=== PATIENT | male | born 1940 | race Caucasian/White ===

== ENCOUNTER 2018-02-21 01:35 | Emergency (ER) | payer MEDICARE, BC ==
--- NOTE | 2018-02-21 02:16 | EDM.PDOC ---
ED HPI GENERAL MEDICAL PROBLEM - General Chief Complaint: Genitourinary Problem Stated Complaint: unable to urinate Time Seen by Provider: 02/21/18 01:55 Source of Information: Reports: Patient History Limitations: Reports: No Limitations - History of Present Illness INITIAL COMMENTS - FREE TEXT/NARRATIVE: This patient is a 77 year old that presents to the ER. Patient reports having urinary retention. He reports that he has not urinated since yesterday afternoon. Patient reports that he has a lot of fullness and pain in his bladder. Patient reports he did vomit x1 last night after eating supper. Patient reports enlarged prostate. Patient denies turner, dizziness, v, d, f, back pain, flank pain, cp, soa, bowel changes. Patient denies penis pain. Onset Date: 02/20/18 Onset Time: 15:00 Duration: Hour(s): (11) Location: Reports: Other (bladder) Quality: Reports: Pressure Severity: Moderate Improves with: Reports: None Worsens with: Reports: None Associated Symptoms: Denies: Confusion, Chest Pain, Cough, cough w sputum, Diaphoresis, Fever/Chills, Headaches, Loss of Appetite, Malaise, Nausea/Vomiting , Rash, Seizure, Shortness of Breath, Syncope, Weakness Bladder Pain Score (Numeric/FACES): 10 - Related Data Allergies Allergy/AdvReac Type Severity Reaction Status Date / Time No Known Allergies Allergy Verified 02/21/18 02:31 Home Meds: Home Meds Ascorbic Acid [Vitamin C] 500 mg PO DAILY 11/15/14 [History] Aspirin [Halfprin] 81 mg PO DAILY 11/15/14 [History] Carvedilol 12.5 mg PO BID 11/15/14 [History] Docusate Sodium [Stool Softener] 100 mg PO BID PRN 11/15/14 [History] Finasteride [Proscar] 5 mg PO DAILY 11/15/14 [History] Magnesium 200 mg PO DAILY 11/15/14 [History] Meloxicam 7.5 mg PO DAILY 11/15/14 [History] [place]-3 Fatty Acids [Fish Oil] 500 mg PO BID 11/15/14 [History] Psyllium Husk [Metamucil] 0.52 gm PO DAILY PRN 11/15/14 [History] Ramipril [Altace] 10 mg PO DAILY 11/15/14 [History] Simvastatin [Zocor] 40 mg PO BEDTIME 11/15/14 [History] Tamsulosin HCl 0.4 mg PO BEDTIME 11/15/14 [History] Ubidecarenone [Co Q-10] 200 mg PO DAILY 02/21/18 [History] ED ROS GENERAL - Review of Systems Review Of Systems: See Below Constitutional: Reports: No Symptoms HEENT: Reports: No Symptoms Respiratory: Reports: No Symptoms Cardiovascular: Reports: No Symptoms Endocrine: Reports: No Symptoms GI/Abdominal: Reports: Vomiting (x1). Denies: Nausea (not currently) : Reports: Urgency, Urinary Retention, Other (suprapubic "bladder" pain and fulllness). Denies: Flank Pain Musculoskeletal: Reports: No Symptoms Skin: Reports: No Symptoms Neurological: Reports: No Symptoms Psychiatric: Reports: No Symptoms Hematologic/Lymphatic: Reports: No Symptoms Immunologic: Reports: No Symptoms ED EXAM, RENAL/ - Physical Exam Exam: See Below Exam Limited By: No Limitations General Appearance: Alert, WD/WN, No Apparent Distress, Other (appears uncomfortable) Eye Exam: Bilateral Eye: PERRL Nose: Normal Inspection Head: Atraumatic, Normocephalic Neck: Normal Inspection Respiratory/Chest: No Respiratory Distress, Lungs Clear, Normal Breath Sounds, No Accessory Muscle Use Cardiovascular: Normal Peripheral Pulses, Regular Rate, Rhythm, No Edema, No Gallop, No JVD, No Murmur, No Rub GI/Abdominal: Normal Bowel Sounds, Soft, No Organomegaly, No Abnormal Bruit, No Mass, Pelvis Stable, Distended (Male) Exam: Suprapubic Fullness Rectal (Males) Exam: Deferred Back Exam: Normal Inspection, Full Range of Motion. No: CVA Tenderness (L), CVA Tenderness (R) Extremities: Normal Inspection, Normal Range of Motion, Non-Tender, No Pedal Edema, Normal Capillary Refill Neurological: Alert, Oriented, Normal Gait, No Motor/Sensory Deficits Psychiatric: Normal Affect, Normal Mood Skin Exam: Warm, Dry, Intact, Normal Color, No Rash Lymphatic: No Adenopathy Course - Vital Signs Last Recorded V/S: Last Vital Signs Temp 97.5 F 02/21/18 01:35 Pulse 64 02/21/18 01:35 Resp 20 02/21/18 01:35 BP 170/76 H 02/21/18 01:35 Pulse Ox 95 02/21/18 01:35 - Orders/Labs/Meds Orders: Active Orders 24 hr Category Date Time Status Insert Cardona Catheter [Insert Urinary Catheter] [OM.PC] Care 02/21/18 01:45 Ordered Q24H Urinary Catheter Assessment [RC] ASDIRECTED Care 02/21/18 02:57 Active Abdomen Pelvis wo Cont [CT] Stat Exams 02/21/18 02:22 Taken CULTURE URINE [RM] Stat Lab 02/21/18 02:11 Ordered Ketorolac [Toradol] Med 02/21/18 03:58 Once 60 mg IM ONETIME ONE Ondansetron [Zofran ODT] Med 02/21/18 03:58 Once 4 mg PO ONETIME ONE Labs: Laboratory Tests 02/21/18 02/21/18 02/21/18 Range/Units 01:59 02:06 02:06 WBC 10.6 H (5.0-10.0) 10^3/uL RBC 4.69 (4.50-6.00) 10^6/uL Hgb 14.1 (14.0-18.0) g/dL Hct 41.6 (40.0-54.0) % MCV 88.7 (82.0-94.0) fL MCH 30.1 (27.0-32.0) pg MCHC 33.9 (33.0-38.0) g/dL RDW Coeff of Ghada 13.3 (11.0-15.0) % Plt Count 199 (150-400) 10^3/uL Neut % (Auto) 79.4 (35-85) % Lymph % (Auto) 9.5 L (10-55) % [place] % (Auto) 10.1 (0-16) % Eos % (Auto) 0.8 (0-5) % Baso % (Auto) 0.2 (0-3) % Neut # (Auto) 8.42 H (1.80-7.00) 10^3/uL Lymph # (Auto) 1.01 (1.00-4.80) 10^3/uL [place] # (Auto) 1.07 H (0.00-0.80) 10^3/uL Eos # (Auto) 0.08 (0.00-0.45) 10^3/uL Baso # (Auto) 0.02 10^3/uL Sodium 138 (136-145) mEq/L Potassium 4.6 (3.5-5.0) mEq/L Chloride 101 (98-106) mEq/L Carbon Dioxide 28 (21-32) mmol/L BUN 20 H (7-18) mg/dL Creatinine 1.2 (0.7-1.3) mg/dL Est Cr Clr Drug Dosing TNP Estimated GFR (MDRD) 59 L (>=60) mL/min Glucose 162 H D (75-99) mg/dL Calcium 8.9 (8.4-10.1) mg/dL Total Bilirubin 0.4 (0.0-1.0) mg/dL AST 24 (15-37) U/L ALT 38 (12-78) U/L Alkaline Phosphatase 91 (46-116) U/L Total Protein 6.5 (6.4-8.2) g/dL Albumin 3.5 (3.4-5.0) g/dL Urine Color Yellow (YELLOW) Urine Appearance Clear (CLEAR) Urine pH 5.5 (4.5-8.0) Ur Specific [place] 1.025 H (1.003-1.020) Urine Protein Negative (NEGATIVE) mg/dL Urine Glucose (UA) Negative (NEGATIVE) mg/dL Urine Ketones Negative (NEGATIVE) mg/dL Urine Occult Blood Large H (NEGATIVE) Urine Nitrite Negative (NEGATIVE) Urine Bilirubin Negative (NEGATIVE) Urine Urobilinogen 0.2 (0.2-1.0) EU/dL Ur Leukocyte Esterase Negative (NEGATIVE) Urine RBC 50-75 H (0-5) /HPF Urine WBC 5-10 H (0-5) /HPF Ur Squamous Epith Cells Occasional H (NOT SEEN) /HPF Ur Renal Epithelial Cell Occasional H (NOT SEEN) /HPF Urine Mucus Few H (NOT SEEN) /HPF Meds: Medications Discontinued Medications Generic Name Dose Route Start Last Admin Trade Name Freq PRN Reason Stop Dose Admin Hydrocodone Bitart/Acetaminophen 3 packet 02/21/18 03:56 Take Home: Acetaminophen/Hydrocod, 2 Tab Pack PO 02/21/18 03:57 ONETIME ONE Ondansetron HCl 2 packet 02/21/18 03:56 Take Home: Ondansetron Odt 4 Mg, 2 Tab Pack PO 02/21/18 03:57 ONETIME ONE - Radiology Interpretation Free Text/Narrative:: Abd/Pelvis ct without contrast: Discussed with radiologist: 4.6mm ureter stone at UVJ with obstruction left. mild hydronephrosis. cholelithiasis, without acute cholecystitis. - Re-Assessments/Exams Free Text/Narrative Re-Assessment/Exam: 02/21/18 03:56 Patient does report that he is feeling a lot of relief, but still has some pain. I called and spoke to Urologist at [facility]. He reports that we could remove the cardnoa, continue flomax, strain urine, increase fluid intake, and followup with urology in 1-2 weeks. Patient may return for increase in pain or urinary retention return. I will discharge the patient. 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 - Discharge Information *PRESCRIPTION DRUG MONITORING PROGRAM REVIEWED*: No *COPY OF PRESCRIPTION DRUG MONITORING REPORT IN PATIENT GABRIEL: No Instructions: Kidney Stones, [id number] Referrals: Rocky Arreaga MD [Primary Care Provider] - Forms: ED Department Discharge Additional Instructions: Followup with your urologist in 1-2 weeks Followup with your primary care provider Return to the ER for worsening of condition or any emergent concerns Increase fluid intake Strain urine Norcol 5/325mg 1-2 pills every 4-6 hours as needed for pain no refill #6 take home Zofran 4mg 1 pill every hours as needed for nausea #4 no refill take home - My Orders Last 24 Hours: My Active Orders 02/21/18 01:45 Insert Cardona Catheter [Insert Urinary Catheter] [OM.PC] Q24H 02/21/18 02:11 CULTURE URINE [RM] Stat 02/21/18 02:22 Abdomen Pelvis wo Cont [CT] Stat 02/21/18 02:57 Urinary Catheter Assessment [RC] ASDIRECTED 02/21/18 03:58 Ketorolac [Toradol] 60 mg IM ONETIME ONE Ondansetron [Zofran ODT] 4 mg PO ONETIME ONE - Assessment/Plan Last 24 Hours: My Active Orders 02/21/18 01:45 Insert Cardona Catheter [Insert Urinary Catheter] [OM.PC] Q24H 02/21/18 02:11 CULTURE URINE [RM] Stat 02/21/18 02:22 Abdomen Pelvis wo Cont [CT] Stat 02/21/18 02:57 Urinary Catheter Assessment [RC] ASDIRECTED 02/21/18 03:58 Ketorolac [Toradol] 60 mg IM ONETIME ONE Ondansetron [Zofran ODT] 4 mg PO ONETIME ONE Plan: PLEASE SEE RN NOTE FOR PFSH.
[2018-02-21 02:28] LABS: CHLORIDE,CL 101 mEq/L (98-106); SODIUM,NA 138 mEq/L (136-145)
[2018-02-21 02:39] VITALS: BP 170/76
[2018-02-21] MEDS ORDERED: Take Home: Ondansetron 4 MG Tab.DIS, 2 Tab Pack PO ONE (03:56)
[2018-02-21] MEDS ORDERED: Take Home: Acetaminophen/HYDROcodone 325-5 MG, 2 Tab Pack PO ONE (03:56)
[2018-02-21] MEDS ORDERED: Ondansetron 4 MG Tab.DIS PO ONE (03:58)
[2018-02-21] MEDS ORDERED: Ketorolac 60 MG/2 ML SDV IM ONE (03:58)
== END 2018-02-21 04:20 | disposition home or self-care (01) ==
LOC: CC.ED 01:35
DX: N13.0 Hydronephrosis with ureteropelvic junction obstruction (principal); Z79.899 Other long term (current) drug therapy; Z79.82 Long term (current) use of aspirin
CPT/HCPCS: 36415; 51702; 74176; 80053; 81001; 85025; 87086; 96372; 99283; 99284; A9270-GY; J1885

== ENCOUNTER → 2018-12-09 | Day surgery (SDC) | payer MEDICARE, BC ==
[~2018-12-09] MED LIST: Lactated Ringers 1,000 ML IV SCH; Propofol 200 MG/20 ML SDV IV ONE
[2018-12-09 12:53] VITALS: BP 169/60; PULSE 56
--- NOTE | 2018-12-12 13:07 | OR ---
DATE OF OPERATION: 12/09/2018 PREOPERATIVE DIAGNOSIS: 1. GASTROESOPHAGEAL REFLUX DISEASE. 2. HISTORY OF POLYPS WITH HEMATOCHEZIA. POSTOPERATIVE DIAGNOSIS: 1. GASTROESOPHAGEAL REFLUX DISEASE. 2. HISTORY OF POLYPS WITH HEMATOCHEZIA. SURGEON: Rocky Arreaga MD PROCEDURE: 1. EGD WITH BIOPSIES X3, NIKKI. 2. FULL-LENGTH COLONOSCOPY WITH POLYP REMOVAL X6, SEE REPORT. ANESTHESIA: MAC via CONTACT LENS CURVE GRINDER. COMPLICATIONS: None. SPECIMEN: 1. Antral biopsy x2. 2. NIKKI. 3. Distal esophageal biopsy x1. 4. Villous adenoma, cecal pouch. 5. Villous adenoma, proximal ascending colon. 6. Four small sessile polyps, see report. FINDINGS: 1. Full-length EGD. 2. Mild antral gastritis. 3. Small hiatal hernia with spontaneous GERD and associated short-segment Garcia's. 4. Full-length colonoscopy. 5. [id number] sigmoid diverticulosis. 6. Colon polyps x6, see report. RECOMMENDATIONS: Followup colonoscopy in 3 years pending path reports. We will continue with proton pump therapy for treatment of the patient's GERD. Do not feel he is in need of consideration for lap Jayleen. INDICATIONS: Mr. Kelly was in for routine physical. He has been having some occasional hematochezia, has a family history of colon cancer and history of polyps himself. We elected to proceed with diagnostic colonoscopy because he has some chronic reflux as well. We did upper and lower endoscopy today. DESCRIPTION OF PROCEDURE: The patient was prepped and draped, placed in the left lateral decubitus position. A lubricated Olympus gastroscope was inserted over a bit, advanced to cricopharyngeus area, and easily intubated in the esophagus. The esophageal lining was benign in its entire course until its most distal portion. The Z-line was crisp around 38 cm. There is a small hernia present with spontaneous reflux seen. There appears to be 1 short segment of Garcia's. No significant inflammation or erosion. We did do a biopsy of that. The scope was advanced into the stomach, through the pylorus, and into the second portion of the duodenum. This and the duodenal bulb were benign. The scope was brought back into the stomach and retroflexed. The upper fundus and cardia were unremarkable. The patient had some very minimal linear gastritis of the antrum. Two biopsies were taken along with a CLOtest. Air was then suctioned from the stomach and the scope removed without complication. A lubricated Olympus colonoscope was then inserted and with relative ease advanced to the cecum. We were able to directly visualize the ileocecal valve and appendiceal orifice. The bowel prep was excellent. Upon withdrawal, the cecal pouch had about a cm sized villous adenoma, I was able to remove with a snare and suctioned into polyp trap #1. He had kind of a linear villous adenoma just outside the pouch in the proximal ascending colon, I had to remove that with 4 separate cold forceps biopsies. The rest of the ascending and transverse colon were unremarkable. The patient had a small villous adenoma at the splenic flexure, removed with a forceps biopsy x2. At the descending colon proximally, there was another villous adenoma along the haustral fold, removed that with a snare and suctioned into polyp trap #3. The rest of the sigmoid and rectosigmoid junction appeared benign other than diverticular disease. In the rectal vault, the patient had 2 small hyperplastic-appearing sessile polyps removed with forceps in their entirety without complication. Retroflexion of the scope in the rectum showed no anal lesions. Air was suctioned, scope removed without complication. IBETH/KACIE /[id number]
== END ==
LOC: CC.SDS 07:50
PROVIDERS: ATTEND Family Medicine
DX: K57.31 Diverticulosis of large intestine without perforation or abscess with bleeding (principal); D12.3 Benign neoplasm of transverse colon; D12.0 Benign neoplasm of cecum; K62.1 Rectal polyp; K57.30 Diverticulosis of large intestine without perforation or abscess without bleeding; K21.9 Gastro-esophageal reflux disease without esophagitis; K22.70 Barrett's esophagus without dysplasia; K44.9 Diaphragmatic hernia without obstruction or gangrene; K31.89 Other diseases of stomach and duodenum; K22.8 Other specified diseases of esophagus; I25.10 Atherosclerotic heart disease of native coronary artery without angina pectoris; I10 Essential (primary) hypertension; E78.00 Pure hypercholesterolemia, unspecified; M47.816 Spondylosis without myelopathy or radiculopathy, lumbar region; N40.0 Benign prostatic hyperplasia without lower urinary tract symptoms; Z95.1 Presence of aortocoronary bypass graft; Z87.891 Personal history of nicotine dependence; Z86.010 Personal history of colon polyps; Z79.82 Long term (current) use of aspirin; Z79.1 Long term (current) use of non-steroidal anti-inflammatories (NSAID); Z79.899 Other long term (current) drug therapy
CPT/HCPCS: 43239; 45380; 45385; 87081; J2704; J7120; 00813; 88305

== ENCOUNTER 2020-02-11 13:38 | Emergency (ER) | payer MEDICARE, BC ==
[2020-02-11] MEDS ORDERED: Sodium Chloride 0.9% 10 ML Syringe FLUSH PRN (14:04)
[2020-02-11 14:12] LABS: O2 DELIVERY DEVICE NASAL CANNULA; O2 SATURATION ARTERIAL 94 % (95-98); PCO2 ARTERIAL 33 mm/Hg0 (35-45); PO2 ARTERIAL 68 mm/Hg (80-100)
--- NOTE | 2020-02-11 14:12 | EDM.PDOC ---
ED HPI GENERAL MEDICAL PROBLEM - General Chief Complaint: General Stated Complaint: SOB, COVID+ Time Seen by Provider: 02/11/20 13:38 Source of Information: Reports: Patient, Family History Limitations: Reports: No Limitations - History of Present Illness INITIAL COMMENTS - FREE TEXT/NARRATIVE: Patient to the emergency department with his with complaint of increasing shortness of breath and fatigue and continued fever. The patient advised that on January 29 he did test positive for COVID. The patient's advised he was sick for a couple of days prior to that. The patient denies any ear, nose, throat symptoms. Denies any unusual neck, back pain or stiffness denies any chest pain, pressure heaviness. Denies any palpitations irregular heartbeat. The patient denies any abdominal pain, nausea, vomiting, diarrhea. The patient's advised that he is not been eating and drinking very well and has lost weight. Onset: Gradual Duration: Day(s): (Symptoms over the past several days) Location: Reports: Generalized Quality: Reports: Ache Severity: Severe Worsens with: Reports: Other (Symptoms worsen with activity) Associated Symptoms: Reports: Cough, Fever/Chills, Shortness of Breath, Weakness. Denies: Confusion, Chest Pain, Headaches, Nausea/Vomiting Treatments POSTAL SORTING OFFICER: Reports: Other (see below) (none) - Related Data Allergies Allergy/AdvReac Type Severity Reaction Status Date / Time No Known Allergies Allergy Verified 02/11/20 13:44 Home Meds: Home Meds Ascorbic Acid [Vitamin C] 500 mg PO DAILY 11/15/14 [History] Aspirin [Halfprin] 81 mg PO DAILY 11/15/14 [History] Docusate Sodium [Stool Softener] 100 mg PO BID PRN 11/15/14 [History] Finasteride [Proscar] 5 mg PO DAILY 11/15/14 [History] Magnesium 200 mg PO DAILY 11/15/14 [History] Meloxicam 7.5 mg PO DAILY 11/15/14 [History] [place]-3 Fatty Acids [Fish Oil] 500 mg PO BID 11/15/14 [History] Psyllium Husk [Metamucil] 0.52 gm PO DAILY PRN 11/15/14 [History] Ramipril [Altace] 10 mg PO DAILY 11/15/14 [History] Tamsulosin HCl 0.4 mg PO BEDTIME 11/15/14 [History] carvediloL [Carvedilol] 12.5 mg PO BID 11/15/14 [History] Ubidecarenone [Co Q-10] 200 mg PO DAILY 02/21/18 [History] Albuterol Sulfate [Proair Hfa] 1 - 2 puff INH Q4H PRN 12/08/18 [History] Esomeprazole Magnesium 20 mg PO DAILY 12/08/18 [History] Ipratropium/Albuterol Sulfate [Iprat-Albut 0.5-3(2.5) mg/3 ml] 1 inh INH QID 12/08/18 [History] Rosuvastatin Calcium 20 mg PO DAILY 12/08/18 [History] Vitamin B Complex 1 tab PO DAILY 12/08/18 [History] Past Medical History HEENT History: Reports: Sinusitis Cardiovascular History: Reports: High Cholesterol, Hypertension Respiratory History: Reports: Bronchitis, Recurrent Gastrointestinal History: Reports: Chronic Constipation Genitourinary History: Reports: BPH, Retention, Urinary Musculoskeletal History: Reports: Osteoarthritis Oncologic (Cancer) History: Reports: Squamous Cell Carcinoma - Infectious Disease History Infectious Disease History: Reports: None - Past Surgical History Cardiovascular Surgical History: Reports: Coronary Artery Bypass Respiratory Surgical History: Reports: None GI Surgical History: Reports: Appendectomy, Cholecystectomy, Colonoscopy, Hernia, Inguinal, Polypectomy Male Surgical History: Reports: None Musculoskeletal Surgical History: Reports: Knee Replacement Social & Family History - Family History Family Medical History: Noncontributory - Tobacco Use Smoking Status *Q: Former Smoker Used Tobacco, but Quit: Yes Month/Year Tobacco Last Used: 40 - Caffeine Use Caffeine Use: Reports: Soda - Recreational Drug Use Recreational Drug Use: No ED ROS GENERAL - Review of Systems Review Of Systems: See Below Constitutional: Reports: Fever, Chills, Weakness HEENT: Reports: No Symptoms. Denies: Ear Pain, Nose Pain, Throat Pain Respiratory: Reports: Shortness of Breath, Wheezing, Cough, Other (Patient advises that he has been using his hand-held nebulizers [id number] as ordered at home.) Cardiovascular: Denies: Chest Pain Endocrine: Reports: No Symptoms GI/Abdominal: Denies: Abdominal Pain, Diarrhea, Nausea, Vomiting : Reports: No Symptoms Musculoskeletal: Reports: Muscle Pain (Generalized myalgia) Skin: Reports: No Symptoms. Denies: Bruising, Rash, Erythema Neurological: Reports: No Symptoms. Denies: Confusion, Dizziness, Headache, Change in Speech Psychiatric: Reports: No Symptoms ED EXAM, GENERAL - Physical Exam Exam: See Below Exam Limited By: No Limitations General Appearance: Alert, WD/WN, Mild Distress, Obese Ears: Normal External Exam, Normal Canal. No: Hearing Grossly Normal (Has hearing aids in) Nose: Normal Inspection, Normal Mucosa Throat/Mouth: Normal Inspection, Normal Lips, Normal Oropharynx, Normal Voice, No Airway Compromise Head: Atraumatic, Normocephalic Neck: Normal Inspection, Supple, Non-Tender, Full Range of Motion Respiratory/Chest: Chest Non-Tender, Wheezing (Patient does have scattered wheezing with decreased lung sounds in the bases) Cardiovascular: Normal Peripheral Pulses, Regular Rate, Rhythm, Systolic Murmur Peripheral Pulses: 2+: Radial (L), Radial (R) GI/Abdominal: Soft, Non-Tender, No Distention Back Exam: Normal Inspection, Full Range of Motion Extremities: Normal Inspection, Normal Range of Motion, Non-Tender, Normal Capillary Refill. No: Pedal Edema, Radhames's Sign Neurological: Alert, Oriented, Normal Cognition, No Motor/Sensory Deficits Psychiatric: Normal Affect, Normal Mood Skin Exam: Warm, Dry, Intact, Normal Color EKG INTERPRETATION EKG Date: 02/11/20 Time: 13:59 Rhythm: NSR P-Wave: Present (First-degree AV block) QRS: Normal ST-T: Other (Unspecific ST changes) QT: Normal EKG Interpretation Comments: Twelve-lead EKG shows underlying sinus rhythm with a ventricular rate of 74 there is a first-degree AV block and nonspecific ST changes however there is no acute injury or ischemia noted. Course - Vital Signs Text/Narrative:: 1405 the patient has been evaluated in the emergency department the patient's oxygen saturation on room air was 85% with a good Bleph. The patient does have scattered expiratory wheezing with decreased lung sounds in the bases. Labs have been obtained and are being processed in the lab at this point, twelve-lead EKG shows an underlying sinus rhythm with a ventricular rate of 74 there is a first-degree AV block and some nonspecific ST changes. however, there is no acute injury or ischemia noted. X-ray is currently on her way into get a chest x-ray. The patient was placed on O2 at 6 L nasal cannula and the oxygen saturation is running around 91 to 92%. 1439 the chest x-ray does show some increased markings in the right lower lobe suggestive of an infiltrate, there is some scattered haziness throughout the left lung however this is an overall poor quality film makes interpretation difficult. The patient's oxygen saturation is hanging around 91 to 92% on 6 L nasal cannula. The patient was given Solu-Medrol 125 mg IV, Rocephin 2 g IV as well as Zithromax 500 mg IV. I did discuss the need to transfer the patient with the patient and the family and they requested to go to [facility] in [place], I did call and speak to the transfer center at 1427 and they advised that there is no code beds available. I then called [facility] in [place] and spoke to the transfer center coordinator there Carli and she also advised they do not have any code beds available. I spoke back with the patient and he advised to go to [facility] in [place]. I did call and speak to the transfer center and ultimately Dr. Mayen the emergency department tending physician who has accepted the patient in transfer. The transfer was accepted at 1439. See the nursing notes for details of the transfer. Patient and the patient's was advised. The patient and the patient's was advised of the transfer. They were advised of the risk and benefits to include the risk of worsening condition, motor vehicle accident and as well as the benefits evaluation and treatment by an manager alliance as well as supervising fire marshal and infectious disease physician who is not available at [facility]. They agreed except the risk and benefits and the patient is being transferred. Last Recorded V/S: Last Vital Signs Temp 36.8 C 02/11/20 13:38 Pulse 70 02/11/20 14:27 Resp 24 H 02/11/20 14:27 BP 153/65 H 02/11/20 14:06 Pulse Ox 91 L 02/11/20 14:27 - Orders/Labs/Meds Orders: Active Orders 24 hr Category Date Time Status EKG Documentation Completion [RC] STAT Care 02/11/20 13:59 Active Overnight Pulse Oximetry [RC] Click to Edit Care 02/11/20 14:03 Active Chest 1V Frontal [CR] Stat Exams 02/11/20 14:02 Taken CULTURE BLOOD [BC] Stat Lab 02/11/20 14:00 Received CULTURE BLOOD [BC] Stat Lab 02/11/20 14:08 Received Azithromycin [Zithromax] 500 mg Med 02/11/20 14:24 Active Sodium Chloride 0.9% [Normal Saline] 250 ml IV ONETIME Sodium Chloride 0.9% [Saline Flush] Med 02/11/20 14:04 Active 10 ml FLUSH ASDIRECTED PRN Blood Culture x2 Reflex Set [OM.PC] Stat Oth 02/11/20 14:02 Ordered Isolation [COMM] Routine Oth 02/11/20 13:38 Active Pulse Oximetry Continuous Monitoring [OM.PC] Routine Oth 02/11/20 14:03 Ordered Saline Lock Insert [OM.PC] Routine Oth 02/11/20 14:04 Ordered Medication Orders Azithromycin 500 mg/ Sodium (Chloride) 250 mls @ 250 mls/hr IV ONETIME ONE Stop: 02/11/20 15:23 Last Admin: 02/11/20 14:37 Dose: 250 mls/hr Documented by: LIBERTAD Sodium Chloride (Saline Flush) 10 ml FLUSH ASDIRECTED PRN PRN Reason: Keep Vein Open Labs: Laboratory Tests 02/11/20 02/11/20 02/11/20 Range/Units 14:05 14:08 14:08 WBC 8.6 (5.0-10.0) 10^3/uL RBC 4.23 L (4.50-6.00) 10^6/uL Hgb 12.2 L (14.0-18.0) g/dL Hct 36.7 L (40.0-54.0) % MCV 86.8 (82.0-94.0) fL MCH 28.8 (27.0-32.0) pg MCHC 33.2 (33.0-38.0) g/dL RDW Coeff of Ghada 14.2 (11.0-15.0) % Plt Count 445 H (150-400) 10^3/uL Neut % (Auto) 73.5 (35-85) % Lymph % (Auto) 8.6 L (10-55) % [place] % (Auto) 16.9 H (0-16) % Eos % (Auto) 0.8 (0-5) % Baso % (Auto) 0.2 (0-3) % Neut # (Auto) 6.32 (1.80-7.00) 10^3/uL Lymph # (Auto) 0.74 L (1.00-4.80) 10^3/uL [place] # (Auto) 1.45 H (0.00-0.80) 10^3/uL Eos # (Auto) 0.07 (0.00-0.45) 10^3/uL Baso # (Auto) 0.02 10^3/uL PT 10.3 (9.7-12.3) SEC INR 1.02 (0.92-1.18) ABG pH 7.45 (7.35-7.45) ABG pCO2 33 L (35-45) mm/Hg0 ABG pO2 68 L (80-100) mm/Hg ABG HCO3 23.0 (22.0-26.0) mm/L ABG O2 Saturation 94 L (95-98) % ABG Base Excess -1.0 (-2.0-3.0) O2 Delivery Device Nasal cannula Oxygen Flow Rate 6.0 Sodium (136-145) mEq/L Potassium (3.5-5.0) mEq/L Chloride (98-106) mEq/L Carbon Dioxide (21-32) mmol/L BUN (7-18) mg/dL Creatinine (0.7-1.3) mg/dL Est Cr Clr Drug Dosing mL/min Estimated GFR (MDRD) (>=60) mL/min Glucose (75-99) mg/dL Lactic Acid (0.4-2.0) mmol/L Calcium (8.4-10.1) mg/dL Magnesium (1.8-2.4) mg/dL Total Bilirubin (0.0-1.0) mg/dL AST (15-37) U/L ALT (12-78) U/L Alkaline Phosphatase (46-116) U/L Troponin I (0.00-0.06) ng/mL C-Reactive Protein (0.2-0.8) mg/dL NT-Pro-B Natriuret Pep (0-1000) pg/mL Total Protein (6.4-8.2) g/dL Albumin (3.4-5.0) g/dL 02/11/20 02/11/20 Range/Units 14:08 14:08 WBC (5.0-10.0) 10^3/uL RBC (4.50-6.00) 10^6/uL Hgb (14.0-18.0) g/dL Hct (40.0-54.0) % MCV (82.0-94.0) fL MCH (27.0-32.0) pg MCHC (33.0-38.0) g/dL RDW Coeff of Ghada (11.0-15.0) % Plt Count (150-400) 10^3/uL Neut % (Auto) (35-85) % Lymph % (Auto) (10-55) % [place] % (Auto) (0-16) % Eos % (Auto) (0-5) % Baso % (Auto) (0-3) % Neut # (Auto) (1.80-7.00) 10^3/uL Lymph # (Auto) (1.00-4.80) 10^3/uL [place] # (Auto) (0.00-0.80) 10^3/uL Eos # (Auto) (0.00-0.45) 10^3/uL Baso # (Auto) 10^3/uL PT (9.7-12.3) SEC INR (0.92-1.18) ABG pH (7.35-7.45) ABG pCO2 (35-45) mm/Hg0 ABG pO2 (80-100) mm/Hg ABG HCO3 (22.0-26.0) mm/L ABG O2 Saturation (95-98) % ABG Base Excess (-2.0-3.0) O2 Delivery Device Oxygen Flow Rate Sodium 136 (136-145) mEq/L Potassium 4.3 (3.5-5.0) mEq/L Chloride 98 (98-106) mEq/L Carbon Dioxide 26 (21-32) mmol/L BUN 13 (7-18) mg/dL Creatinine 0.9 (0.7-1.3) mg/dL Est Cr Clr Drug Dosing 62.03 mL/min Estimated GFR (MDRD) > 60 (>=60) mL/min Glucose 138 H (75-99) mg/dL Lactic Acid 1.4 (0.4-2.0) mmol/L Calcium 8.7 (8.4-10.1) mg/dL Magnesium 2.2 (1.8-2.4) mg/dL Total Bilirubin 0.5 (0.0-1.0) mg/dL AST 72 H (15-37) U/L ALT 85 H (12-78) U/L Alkaline Phosphatase 73 (46-116) U/L Troponin I < 0.017 (0.00-0.06) ng/mL C-Reactive Protein 33.7 H (0.2-0.8) mg/dL NT-Pro-B Natriuret Pep 692 (0-1000) pg/mL Total Protein 7.1 (6.4-8.2) g/dL Albumin 2.1 L (3.4-5.0) g/dL Meds: Medications Generic Name Dose Route Start Last Admin Trade Name Freq PRN Reason Stop Dose Admin Azithromycin 500 mg/ Sodium 250 mls @ 250 mls/hr 02/11/20 14:24 02/11/20 14:37 Chloride IV 02/11/20 15:23 250 mls/hr ONETIME ONE Administration Sodium Chloride 10 ml 02/11/20 14:04 Saline Flush FLUSH ASDIRECTED PRN Keep Vein Open Discontinued Medications Generic Name Dose Route Start Last Admin Trade Name Freq PRN Reason Stop Dose Admin Ceftriaxone Sodium 2 gm 02/11/20 14:23 02/11/20 14:30 Rocephin IVPUSH 02/11/20 14:24 2 gm ONETIME ONE Administration Methylprednisolone Sodium Succinate 125 mg 02/11/20 14:20 02/11/20 14:24 Solu-Medrol IVPUSH 02/11/20 14:21 125 mg ONETIME ONE Administration Departure - Departure Time of Disposition: 14:44 Disposition: DC/Tfer to [facility] 02 Condition: Good Clinical Impression: Right lower lobe pneumonia, Lab test positive for detection of COVID-19 virus, Shortness of breath, Hypoxia - Discharge Information *PRESCRIPTION DRUG MONITORING PROGRAM REVIEWED*: Not Applicable *COPY OF PRESCRIPTION DRUG MONITORING REPORT IN PATIENT GABRIEL: Not Applicable Referrals: Rocky Arreaga MD [Primary Care Provider] - Forms: ED Department Discharge Critical Care Note - Critical Care Note Total Time (mins): 30 (See the course notes for details) Sepsis Event Note (ED) - Evaluation Sepsis Screening Result: Possible Sepsis Risk - Focused Exam Vital Signs: Vital Signs Temp Pulse Resp BP Pulse Ox 02/11/20 14:27 70 24 H 91 L 02/11/20 14:06 73 18 153/65 H 92 L 02/11/20 13:48 92 L 02/11/20 13:38 36.8 C 77 30 H 145/66 H 85 L - Problem List & Annotations (1) Hypoxia SNOMED Code(s): 932266002 Code(s): R09.02 - HYPOXEMIA Status: Acute Priority: High Current Visit: Yes (2) Lab test positive for detection of COVID-19 virus SNOMED Code(s): 005870076, 849301765 Code(s): U07.1 - COVID-19 Status: Acute Priority: High Current Visit: Yes (3) Right lower lobe pneumonia SNOMED Code(s): 404327100 Code(s): J18.9 - PNEUMONIA, UNSPECIFIED ORGANISM Status: Acute Priority: High Current Visit: Yes Qualifiers: Pneumonia type: due to unspecified organism Qualified Code(s): J18.9 - Pneumonia, unspecified organism (4) Shortness of breath SNOMED Code(s): 221308011 Code(s): R06.02 - SHORTNESS OF BREATH Status: Acute Priority: High Current Visit: Yes - Problem List Review Problem List Initiated/Reviewed/Updated: Yes - My Orders Last 24 Hours: My Active Orders 02/11/20 13:38 Isolation [COMM] Routine 02/11/20 13:59 EKG Documentation Completion [RC] STAT 02/11/20 14:00 CULTURE BLOOD [BC] Stat 02/11/20 14:02 Chest 1V Frontal [CR] Stat Blood Culture x2 Reflex Set [OM.PC] Stat 02/11/20 14:03 Overnight Pulse Oximetry [RC] Click to Edit Pulse Oximetry Continuous Monitoring [OM.PC] Routine 02/11/20 14:04 Sodium Chloride 0.9% [Saline Flush] 10 ml FLUSH ASDIRECTED PRN Saline Lock Insert [OM.PC] Routine 02/11/20 14:08 CULTURE BLOOD [BC] Stat 02/11/20 14:24 Azithromycin [Zithromax] 500 mg Sodium Chloride 0.9% [Normal Saline] 250 ml IV ONETIME - Assessment/Plan Last 24 Hours: My Active Orders 02/11/20 13:38 Isolation [COMM] Routine 02/11/20 13:59 EKG Documentation Completion [RC] STAT 02/11/20 14:00 CULTURE BLOOD [BC] Stat 02/11/20 14:02 Chest 1V Frontal [CR] Stat Blood Culture x2 Reflex Set [OM.PC] Stat 02/11/20 14:03 Overnight Pulse Oximetry [RC] Click to Edit Pulse Oximetry Continuous Monitoring [OM.PC] Routine 02/11/20 14:04 Sodium Chloride 0.9% [Saline Flush] 10 ml FLUSH ASDIRECTED PRN Saline Lock Insert [OM.PC] Routine 02/11/20 14:08 CULTURE BLOOD [BC] Stat 02/11/20 14:24 Azithromycin [Zithromax] 500 mg Sodium Chloride 0.9% [Normal Saline] 250 ml IV ONETIME Plan: The patient's past medical history, past surgical history, social history and past family medical history was reviewed see the nursing notes for details
[2020-02-11] MEDS: methylPREDNISolone Sodium Succinate 125 MG/2 ML SDV IVPUSH ONE (14:24)
[2020-02-11 14:26] LABS: CHLORIDE,CL 98 mEq/L (98-106); SODIUM,NA 136 mEq/L (136-145)
[2020-02-11] MEDS: cefTRIAXone 2 GM Vial IVPUSH ONE (14:30)
[2020-02-11] MEDS: Azithromycin 500 MG in Sodium Chloride 0.9% 250 ML IV ONE (14:37)
[2020-02-11 15:56] VITALS: BP 155/70; PULSE 68
== END 2020-02-11 16:12 ==
LOC: CC.ED 13:38
DX: J18.1 Lobar pneumonia, unspecified organism (principal); U07.1 COVID-19; E78.00 Pure hypercholesterolemia, unspecified; I10 Essential (primary) hypertension; M19.90 Unspecified osteoarthritis, unspecified site; Z79.82 Long term (current) use of aspirin; Z87.891 Personal history of nicotine dependence; Z85.828 Personal history of other malignant neoplasm of skin; Z79.899 Other long term (current) drug therapy
CPT/HCPCS: 36415; 36600; 71045; 80053; 82803; 83605; 83735; 83880; 84484; 85025; 85610; 86140; 87040; 93005; 96365; 96375; 99285; J0456; J0696; J2930; J7050

== ENCOUNTER 2021-06-18 14:11 | Inpatient (IN) | payer MEDICARE, BC ==
[2021-06-18] MEDS ORDERED: Albuterol/Ipratropium 3.0-0.5 MG/3 ML Neb Soln NEB PRN (14:32)
[2021-06-18] MEDS ORDERED: Furosemide 40 MG/4 ML VIAL IVPUSH ONE (14:32)
[2021-06-18] MEDS ORDERED: Sodium Chloride 0.9% 1,000 ML IV SCH (14:45)
[2021-06-18] MEDS ORDERED: methylPREDNISolone Sodium Succinate 125 MG/2 ML SDV IVPUSH SCH (14:45)
[2021-06-18] MEDS ORDERED: Levofloxacin/Dextrose 5%-Water 750 MG in Premix Bag 1 BAG IV SCH (15:15)
[2021-06-18 15:25] LABS: CORONAVIRUS COVID-19 NAA NEGATIVE (NEGATIVE)
[2021-06-18] MEDS ORDERED: Docusate Sodium 100 MG Cap PO PRN (15:35)
[2021-06-18] MEDS ORDERED: Levofloxacin/Dextrose 5%-Water 500 MG in Premix Bag 1 BAG IV ONE (16:52)
[2021-06-18] MEDS: Carvedilol 12.5 MG Tab PO SCH (17:01)
[2021-06-18] MEDS: Tamsulosin 0.4 MG Cap.ER PO SCH (19:44)
[2021-06-18] MEDS: Albuterol/Ipratropium 3.0-0.5 MG/3 ML Neb Soln NEB SCH (19:44)
[2021-06-19] MEDS: Sodium Chloride 0.9% 1,000 ML IV SCH ×2 (01:02→13:30)
[2021-06-19 07:49] LABS: CHLORIDE,CL 103 mEq/L (98-106); SODIUM,NA 141 mEq/L (136-145)
[2021-06-19] MEDS: Lisinopril 20 MG Tab PO SCH (07:57)
[2021-06-19] MEDS: Finasteride 5 MG Tab PO SCH (07:57)
[2021-06-19] MEDS: Pantoprazole 40 MG Tab.CR PO SCH (07:57)
[2021-06-19] MEDS: Aspirin 81 MG Tab.EC PO SCH (07:57)
[2021-06-19] MEDS: Albuterol/Ipratropium 3.0-0.5 MG/3 ML Neb Soln NEB SCH ×4 (07:58→19:37)
[2021-06-19] MEDS: Enoxaparin 40 MG/0.4 ML Syringe SUBCUT SCH (07:58)
[2021-06-19] MEDS: Carvedilol 12.5 MG Tab PO SCH ×2 (09:11→17:23)
[2021-06-19] MEDS ORDERED: Levofloxacin/Dextrose 5%-Water 250 MG in Premix Bag 1 BAG IV SCH (16:00)
[2021-06-19] MEDS: Levofloxacin/Dextrose 5%-Water 750 MG in Premix Bag 1 BAG IV SCH (17:23)
[2021-06-19] MEDS: Tamsulosin 0.4 MG Cap.ER PO SCH (19:37)
[2021-06-19] MEDS ORDERED: ROSUVASTATIN CALCIUM 20 MG PO SCH (20:00)
[2021-06-19] MEDS: Acetaminophen 500 MG Tab PO PRN (23:45)
[2021-06-20] MEDS: Sodium Chloride 0.9% 1,000 ML IV SCH (04:23)
[2021-06-20] MEDS: Pantoprazole 40 MG Tab.CR PO SCH (06:23)
[2021-06-20 07:45] LABS: CHLORIDE,CL 106 mEq/L (98-106); SODIUM,NA 143 mEq/L (136-145)
[2021-06-20] MEDS: Lisinopril 20 MG Tab PO SCH (08:05)
[2021-06-20] MEDS: Finasteride 5 MG Tab PO SCH (08:06)
[2021-06-20] MEDS: Carvedilol 12.5 MG Tab PO SCH ×2 (08:06→17:00)
[2021-06-20] MEDS: Aspirin 81 MG Tab.EC PO SCH (08:06)
[2021-06-20] MEDS: Enoxaparin 40 MG/0.4 ML Syringe SUBCUT SCH (08:07)
[2021-06-20] MEDS: Albuterol/Ipratropium 3.0-0.5 MG/3 ML Neb Soln NEB SCH ×4 (08:07→19:46)
[2021-06-20] MEDS: methylPREDNISolone Sodium Succinate 125 MG/2 ML SDV IVPUSH SCH (08:47)
[2021-06-20] MEDS: Levofloxacin/Dextrose 5%-Water 750 MG in Premix Bag 1 BAG IV SCH (15:50)
[2021-06-20] MEDS: Tamsulosin 0.4 MG Cap.ER PO SCH (19:46)
[2021-06-21] MEDS: Acetaminophen 500 MG Tab PO PRN (05:29)
[2021-06-21] MEDS: Pantoprazole 40 MG Tab.CR PO SCH (06:10)
[2021-06-21] MEDS: methylPREDNISolone Sodium Succinate 125 MG/2 ML SDV IVPUSH SCH (07:52)
[2021-06-21] MEDS: Lisinopril 20 MG Tab PO SCH (07:52)
[2021-06-21] MEDS: Aspirin 81 MG Tab.EC PO SCH (07:52)
[2021-06-21] MEDS: Finasteride 5 MG Tab PO SCH (07:52)
[2021-06-21] MEDS: Carvedilol 12.5 MG Tab PO SCH ×2 (07:52→17:27)
[2021-06-21] MEDS: Albuterol/Ipratropium 3.0-0.5 MG/3 ML Neb Soln NEB SCH ×4 (07:53→19:41)
[2021-06-21] MEDS: Enoxaparin 40 MG/0.4 ML Syringe SUBCUT SCH (07:53)
[2021-06-21 08:20] LABS: CHLORIDE,CL 104 mEq/L (98-106); SODIUM,NA 143 mEq/L (136-145)
[2021-06-21] MEDS ORDERED: Furosemide 20 MG/2 ML VIAL IVPUSH ONE (11:17)
[2021-06-21] MEDS: Levofloxacin/Dextrose 5%-Water 750 MG in Premix Bag 1 BAG IV SCH (15:54)
[2021-06-21] MEDS: Tamsulosin 0.4 MG Cap.ER PO SCH (19:41)
[2021-06-22] MEDS: Pantoprazole 40 MG Tab.CR PO SCH (06:06)
[2021-06-22] MEDS: Aspirin 81 MG Tab.EC PO SCH (08:07)
[2021-06-22] MEDS: Finasteride 5 MG Tab PO SCH (08:07)
[2021-06-22] MEDS: Carvedilol 12.5 MG Tab PO SCH ×2 (08:07→16:36)
[2021-06-22] MEDS: methylPREDNISolone Sodium Succinate 125 MG/2 ML SDV IVPUSH SCH (08:08)
[2021-06-22] MEDS: Lisinopril 20 MG Tab PO SCH (08:08)
[2021-06-22] MEDS: Albuterol/Ipratropium 3.0-0.5 MG/3 ML Neb Soln NEB SCH ×4 (08:08→19:57)
[2021-06-22] MEDS: Enoxaparin 40 MG/0.4 ML Syringe SUBCUT SCH (08:08)
[2021-06-22] MEDS: Levofloxacin/Dextrose 5%-Water 750 MG in Premix Bag 1 BAG IV SCH (16:29)
[2021-06-22] MEDS: Acetaminophen 500 MG Tab PO PRN (19:57)
[2021-06-22] MEDS: Tamsulosin 0.4 MG Cap.ER PO SCH (19:57)
[2021-06-23] MEDS: Pantoprazole 40 MG Tab.CR PO SCH (06:20)
[2021-06-23] MEDS: Albuterol/Ipratropium 3.0-0.5 MG/3 ML Neb Soln NEB SCH ×3 (07:51→16:36)
[2021-06-23] MEDS: Finasteride 5 MG Tab PO SCH (07:52)
[2021-06-23] MEDS: Carvedilol 12.5 MG Tab PO SCH (07:52)
[2021-06-23] MEDS: Lisinopril 20 MG Tab PO SCH (07:52)
[2021-06-23] MEDS: Aspirin 81 MG Tab.EC PO SCH (07:53)
[2021-06-23] MEDS: methylPREDNISolone Sodium Succinate 125 MG/2 ML SDV IVPUSH SCH (07:53)
[2021-06-23] MEDS: Enoxaparin 40 MG/0.4 ML Syringe SUBCUT SCH (07:53)
[2021-06-23 08:08] LABS: CHLORIDE,CL 104 mEq/L (98-106); SODIUM,NA 142 mEq/L (136-145)
[2021-06-23] MEDS: Levofloxacin/Dextrose 5%-Water 750 MG in Premix Bag 1 BAG IV SCH (16:36)
[2021-06-23 17:08] VITALS: BP 139/64; PULSE 79
== END 2021-06-23 18:24 | disposition home or self-care (01) | DRG 871 ==
LOC: CC.ED 14:11 → CC.MS 15:33 → UNDOADMIN 15:58 → CC.MS 15:58
PROVIDERS: ADMIT Nurse Practitioner Family; ATTEND Family Medicine
DX: A41.9 Sepsis, unspecified organism (principal); J18.9 Pneumonia, unspecified organism; R09.02 Hypoxemia; E78.00 Pure hypercholesterolemia, unspecified; K59.09 Other constipation; N40.1 Benign prostatic hyperplasia with lower urinary tract symptoms; R33.9 Retention of urine, unspecified; R33.8 Other retention of urine; M19.90 Unspecified osteoarthritis, unspecified site; E86.0 Dehydration; I10 Essential (primary) hypertension; Z96.653 Presence of artificial knee joint, bilateral; Z20.822 Contact with and (suspected) exposure to COVID-19; Z79.82 Long term (current) use of aspirin; Z79.899 Other long term (current) drug therapy; Z90.49 Acquired absence of other specified parts of digestive tract; Z85.828 Personal history of other malignant neoplasm of skin
CPT/HCPCS: 0240U; 36415; 71045; 80053; 83605; 85025; 85379; 86140; 87040; 94640; 96374; 96375; 99285-25; A9270-GY; J1650; J1940; J1956; J2930; J7030; J7620-GY

== ENCOUNTER → 2021-11-07 | Day surgery (SDC) | payer MEDICARE, BC ==
[~2021-11-07] MED LIST changes: +Ketamine 200 MG/20 ML MDV ONE; +Phenylephrine 1% 10 MG/ML SDV ONE; -Propofol 200 MG/20 ML SDV IV ONE; +Propofol 200 MG/20 ML SDV ONE; +ePHEDrine 50 MG/ML SDV ONE
[2021-11-07 12:42] VITALS: PULSE 67
[2021-11-07 12:43] VITALS: BP 132/45
== END ==
LOC: CC.SDS 10:01
PROVIDERS: ATTEND Family Medicine
DX: Z12.11 Encounter for screening for malignant neoplasm of colon (principal); D12.3 Benign neoplasm of transverse colon; K57.30 Diverticulosis of large intestine without perforation or abscess without bleeding; J44.9 Chronic obstructive pulmonary disease, unspecified; I25.10 Atherosclerotic heart disease of native coronary artery without angina pectoris; N40.0 Benign prostatic hyperplasia without lower urinary tract symptoms; E78.00 Pure hypercholesterolemia, unspecified; I10 Essential (primary) hypertension; Z80.0 Family history of malignant neoplasm of digestive organs; Z79.82 Long term (current) use of aspirin; Z79.899 Other long term (current) drug therapy; Z87.891 Personal history of nicotine dependence
CPT/HCPCS: 00812; 45385; 88305; J2370; J2704; J7120

== ENCOUNTER 2022-05-02 08:18 | Observation (INO) | payer MEDICARE, BC ==
[2022-05-02] MEDS ORDERED: Acetaminophen 500 MG Tab PO ONE (08:25)
[2022-05-02 09:12] LABS: CORONAVIRUS COVID-19 NAA NEGATIVE (NEGATIVE); RESPIRATORY SYNCYTIAL VIR NAA NEGATIVE (NEGATIVE)
[2022-05-02] MEDS ORDERED: cefTRIAXone 1 GM Vial IVPUSH ONE (10:09)
[2022-05-02] MEDS ORDERED: Sodium Chloride 0.9% 10 ML Syringe FLUSH PRN (10:10)
[2022-05-02] MEDS ORDERED: Iopamidol 755 Mg/ML 100 ML Bottle IVPUSH ONE (10:14)
[2022-05-02] MEDS ORDERED: Azithromycin 500 MG in Sodium Chloride 0.9% 250 ML IV SCH (10:15)
[2022-05-02] MEDS ORDERED: Albuterol/Ipratropium 3.0-0.5 MG/3 ML Neb Soln NEB ONE (13:05)
[2022-05-02] MEDS ORDERED: Ondansetron 4 MG/2 ML SDV IV PRN (13:08)
[2022-05-02] MEDS ORDERED: Acetaminophen 325 MG Tab PO PRN (13:08)
[2022-05-02] MEDS ORDERED: Polyethylene Glycol 3350 Powder 17 GM Packet PO PRN (13:08)
[2022-05-02] MEDS ORDERED: Docusate Sodium 100 MG Cap PO PRN (13:08)
[2022-05-02] MEDS ORDERED: Albuterol/Ipratropium 3.0-0.5 MG/3 ML Neb Soln NEB PRN (13:13)
[2022-05-02] MEDS ORDERED: Sodium Chloride 0.9% 1,000 ML IV SCH (13:15)
[2022-05-02] MEDS: Albuterol/Ipratropium 3.0-0.5 MG/3 ML Neb Soln NEB SCH ×2 (15:12→19:51)
[2022-05-02] MEDS ORDERED: PSYLLIUM HUSK PO PRN (16:27)
[2022-05-02] MEDS ORDERED: Albuterol/Ipratropium 3.0-0.5 MG/3 ML Neb Soln INH PRN (16:27)
[2022-05-02] MEDS ORDERED: Docusate Sodium 100 MG Cap **OWN MED PO PRN (16:27)
[2022-05-02] MEDS: CARVEDILOL 25 MG PO SCH (18:31)
[2022-05-02] MEDS: Enoxaparin 40 MG/0.4 ML Syringe SUBCUT SCH (19:50)
[2022-05-02] MEDS: Budesonide 0.5 MG/2 ML Neb Susp NEB SCH (19:51)
[2022-05-02] MEDS: OMEGA PO SCH (19:52)
[2022-05-02] MEDS: FATTY ACIDS PO SCH (19:52)
[2022-05-02] MEDS: Tamsulosin 0.4 MG Cap.ER **OWN MED PO SCH (19:52)
[2022-05-03] MEDS: Vitamin B Complex Cap PO SCH (08:30)
[2022-05-03] MEDS: Budesonide 0.5 MG/2 ML Neb Susp NEB SCH ×2 (08:30→19:58)
[2022-05-03] MEDS: Albuterol/Ipratropium 3.0-0.5 MG/3 ML Neb Soln NEB SCH ×4 (08:30→19:57)
[2022-05-03] MEDS: ASCORBIC ACID 500 MG PO SCH (08:33)
[2022-05-03] MEDS: Aspirin 81 MG Tab.EC **OWN MED PO SCH (08:34)
[2022-05-03] MEDS: ESOMEPRAZOLE MAGNESIUM 20 MG PO SCH (08:34)
[2022-05-03] MEDS: UBIDECARENONE 100 MG PO SCH (08:36)
[2022-05-03] MEDS: MAGNESIUM 500 MG PO SCH (08:37)
[2022-05-03] MEDS: OMEGA PO SCH ×2 (08:37→19:58)
[2022-05-03] MEDS: FATTY ACIDS PO SCH ×2 (08:37→19:58)
[2022-05-03] MEDS: cefTRIAXone 1 GM Vial IVPUSH SCH (08:39)
[2022-05-03] MEDS: ROSUVASTATIN CALCIUM 20 MG PO SCH (08:40)
[2022-05-03] MEDS: RAMIPRIL 10 MG PO SCH (08:41)
[2022-05-03] MEDS: MELOXICAM 15 MG PO SCH (08:41)
[2022-05-03] MEDS: Finasteride 5 MG Tab **OWN MED PO SCH (08:42)
[2022-05-03] MEDS: Hydrochlorothiazide 25 MG Tab **OWN MED PO SCH (09:28)
[2022-05-03] MEDS: CARVEDILOL 25 MG PO SCH ×2 (09:29→16:45)
[2022-05-03] MEDS: Azithromycin 500 MG in Sodium Chloride 0.9% 250 ML IV SCH (09:37)
[2022-05-03] MEDS: Tamsulosin 0.4 MG Cap.ER **OWN MED PO SCH (19:58)
[2022-05-03] MEDS: Enoxaparin 40 MG/0.4 ML Syringe SUBCUT SCH (19:58)
[2022-05-04] MEDS: Vitamin B Complex Cap PO SCH (07:36)
[2022-05-04] MEDS: Budesonide 0.5 MG/2 ML Neb Susp NEB SCH (07:36)
[2022-05-04] MEDS: Albuterol/Ipratropium 3.0-0.5 MG/3 ML Neb Soln NEB SCH (07:36)
[2022-05-04] MEDS: cefTRIAXone 1 GM Vial IVPUSH SCH (07:37)
[2022-05-04] MEDS: CARVEDILOL 25 MG PO SCH (07:47)
[2022-05-04] MEDS: ASCORBIC ACID 500 MG PO SCH (07:47)
[2022-05-04] MEDS: ESOMEPRAZOLE MAGNESIUM 20 MG PO SCH (07:47)
[2022-05-04] MEDS: Hydrochlorothiazide 25 MG Tab **OWN MED PO SCH (07:47)
[2022-05-04] MEDS: Aspirin 81 MG Tab.EC **OWN MED PO SCH (07:47)
[2022-05-04] MEDS: RAMIPRIL 10 MG PO SCH (07:48)
[2022-05-04] MEDS: Finasteride 5 MG Tab **OWN MED PO SCH (07:48)
[2022-05-04] MEDS: OMEGA PO SCH (07:48)
[2022-05-04] MEDS: MELOXICAM 15 MG PO SCH (07:48)
[2022-05-04] MEDS: MAGNESIUM 500 MG PO SCH (07:48)
[2022-05-04] MEDS: FATTY ACIDS PO SCH (07:48)
[2022-05-04] MEDS: UBIDECARENONE 100 MG PO SCH (07:48)
[2022-05-04] MEDS: ROSUVASTATIN CALCIUM 20 MG PO SCH (07:48)
[2022-05-04] MEDS ORDERED: Docusate Sodium 100 MG Cap PO PRN (08:28)
[2022-05-04] MEDS ORDERED: Psyllium Husk Powder Sugar Free 5.85 GM Packet PO PRN (08:40)
[2022-05-04 08:47] VITALS: BP 141/45; PULSE 75
[2022-05-04] MEDS: Azithromycin 500 MG in Sodium Chloride 0.9% 250 ML IV SCH (09:53)
[2022-05-05] MEDS ORDERED: Ascorbic Acid 500 MG Tab PO SCH (08:00)
[2022-05-05] MEDS ORDERED: Aspirin 81 MG Tab.EC PO SCH (08:00)
== END 2022-05-04 11:11 | disposition home or self-care (01) ==
LOC: CC.ED 08:18 → UNDOADMOB 09:45 → CC.MS 09:45
PROVIDERS: ADMIT Nurse Practitioner Family; ATTEND Nurse Practitioner Family
DX: J18.9 Pneumonia, unspecified organism (principal); R91.8 Other nonspecific abnormal finding of lung field; I25.10 Atherosclerotic heart disease of native coronary artery without angina pectoris; I10 Essential (primary) hypertension; E78.00 Pure hypercholesterolemia, unspecified; K21.9 Gastro-esophageal reflux disease without esophagitis; M19.90 Unspecified osteoarthritis, unspecified site; Z95.5 Presence of coronary angioplasty implant and graft; Z79.82 Long term (current) use of aspirin; Z79.899 Other long term (current) drug therapy; Z86.16 Personal history of COVID-19; Z90.49 Acquired absence of other specified parts of digestive tract; Z98.890 Other specified postprocedural states; Z87.891 Personal history of nicotine dependence; Z20.822 Contact with and (suspected) exposure to COVID-19
CPT/HCPCS: 0241U; 36415; 71046; 71260; 80053; 85025; 94640; 96361; 96365; 96366; 96372; 96375; 96376; 99217; 99220; 99225; 99285-25; A9270-GY; G0378; J0456; J0696; J1650; J7030; J7050; J7620-GY; Q9967

== ENCOUNTER 2023-12-07 10:07 | Emergency (ER) | payer MEDICARE, BC ==
[2023-12-07 10:54] LABS: BASOPHILS ABSOLUTE AUTO 0.03 10^3/uL (0.00-0.50); BASOPHILS PERCENT AUTO 0.4 % (0-1); EOSINOPHILS ABSOLUTE AUTO 0.28 10^3/uL (0.00-1.50); EOSINOPHILS PERCENT AUTO 3.6 % (0-6); HEMATOCRIT 40.8 % (42.0-52.0); HEMOGLOBIN 13.3 g/dL (14.0-18.0); IMMATURE GRAN ABSOLUTE AUTO 0.01 10^3/uL (0.00-0.49); IMMATURE GRAN PERCENT AUTO 0.1 % (0.0-4.9); LYMPHOCYTES PERCENT AUTO 15.4 % (24-44); MEAN CORPUSCULAR HEMOGLOBIN 29.4 pg (27.0-32.0); MEAN CORPUSCULAR HGB CONC 32.6 g/dL (32.0-36.0); MEAN CORPUSCULAR VOLUME 90.1 fL (83.0-97.0); MONOCYTES ABSOLUTE AUTO 0.97 10^3/uL (0.00-1.50); MONOCYTES PERCENT AUTO 12.5 % (0-10); PLATELET COUNT,PLT 177 10^3/uL (150-400); RED BLOOD CELL COUNT 4.53 x10^6/uL (4.50-6.00); WHITE BLOOD CELL COUNT,WBC 7.8 10^3/uL (4.0-11.0)
[2023-12-07 11:06] LABS: ALBUMIN 3.2 g/dL (3.4-5.0); BILIRUBIN TOTAL 0.6 mg/dL (0.0-1.0); CALCIUM 8.7 mg/dL (8.4-10.1); CREATININE 1.2 mg/dL (0.7-1.3); EST CRCL DRUG DOSING (CG) 45.14 mL/min; POTASSIUM,K 4.6 mEq/L (3.5-5.0); PROTEIN TOTAL,TP 6.4 g/dL (6.4-8.2)
[2023-12-07 11:20] LABS: MAGNESIUM 1.9 mg/dL (1.8-2.4)
[2023-12-07] MEDS: Meclizine 12.5 MG Tab PO ONE (11:20)
[2023-12-07 12:59] VITALS: BP 128/54
[2023-12-07 13:43] VITALS: PULSE 58
== END 2023-12-07 13:30 | disposition home or self-care (01) ==
LOC: CC.ED 10:07
DX: H81.12 Benign paroxysmal vertigo, left ear (principal); I10 Essential (primary) hypertension; E78.00 Pure hypercholesterolemia, unspecified; I25.10 Atherosclerotic heart disease of native coronary artery without angina pectoris; J40 Bronchitis, not specified as acute or chronic; K21.9 Gastro-esophageal reflux disease without esophagitis; M19.90 Unspecified osteoarthritis, unspecified site; Z90.49 Acquired absence of other specified parts of digestive tract; Z79.899 Other long term (current) drug therapy; Z79.82 Long term (current) use of aspirin
CPT/HCPCS: 36415; 70450; 80053; 83735; 84484; 85025; 93005; 93010; 99284; A9270-GY